=== PATIENT | female | born 1975 | race African-American/Black ===

== ENCOUNTER 2016-07-05 12:47 | Inpatient (IN) | payer MEDICAID ==
[~2016-07-05] VITALS: Ht 170.2 cm; Wt 61.8 kg
[2016-07-05 14:11] LABS: Basophils # (auto) 0 uL; Basophils % (auto) 0.8 % (0.0-2.0); Eosinophils # (auto) 0.2 uL; Eosinophils % (auto) 3.2 % (0.0-7.0); Hematocrit 39.7 % (36.0-46.0); Hemoglobin 13.3 g/dL (12.2-16.2); Lymphocytes # (auto) 2.4 uL; Lymphocytes % (auto) 48.7 % (10.0-50.0); Mean Corpuscular Hemoglobin 33.3 pg (28.0-32.0); Mean Corpuscular Hgb Conc. 33.5 g/dL (32.0-36.0); Mean Corpuscular Volume 99.4 fL (80.0-100.0); Mean Platelet Volume 7.4 fL (7.4-10.4); Monocytes # (auto) 0.3 uL; Monocytes % (auto) 6.4 % (0.0-12.0); Neutrophils % (auto) 40.9 % (37.0-80.0); Platelet Count (auto) 330 10^3/uL (140-450); Red Cell Distribution Width 15.3 % (11.6-16.0); White Blood Cell 4.8 10^3/uL (4.4-10.8)
[2016-07-05 14:46] LABS: Albumin 3.5 g/dL (3.4-5.0); Bilirubin, Total 0.4 mg/dL (0.2-1.0); Calcium 8.7 mg/dL (8.5-10.1); Magnesium 1.8 mg/dL (1.6-2.6); Potassium 3.4 mmol/L (3.5-5.1); Total Protein 6.9 g/dL (6.4-8.2)
[2016-07-05] MEDS ORDERED: SODIUM CHLORIDE 0.9% 1,000 ML IVB ONE (16:23)
[2016-07-05] MEDS ORDERED: ONDANSETRON HCL 4 MG/2 ML VIAL IV ONE (16:30)
[2016-07-05] MEDS ORDERED: KETOROLAC TROMETH 30 MG/ML 1ML VIAL IV ONE (16:30)
[2016-07-05 16:36] LABS: Urine Bilirubin Negative (Negative); Urine Blood Negative /uL (Negative); Urine Color Yellow (Yellow); Urine Glucose Normal (Normal); Urine Ketone Negative (Negative); Urine Mucus FEW (None Seen); Urine Nitrite Negative (Negative); Urine RBC <1 /hpf (0 - 4); Urine Squamous Epithelial Cell FEW /hpf (<5); Urine pH 5.5 (5.0-8.0)
[2016-07-05 16:55] LABS: Amylase 60 U/L (25-115)
[2016-07-05 17:19] LABS: Partial Thromboplastin Time 25.2 sec (22.64-33.71); Prothrombin Time 10.3 sec (9.37-12.3)
[2016-07-05] MEDS: SODIUM CHLORIDE 0.9% 1,000 ML IV SCH (22:13)
[2016-07-05] MEDS: MORPHINE SULF INJ 2 MG/ML SYRINGE 1ML IV PRN (22:16)
[2016-07-05] MEDS: FAMOTIDINE (10MG/ML) 2ML VL IV SCH (22:21)
[2016-07-05 23:30] VITALS: BP 117/83
[2016-07-06] MEDS: MORPHINE SULF INJ 2 MG/ML SYRINGE 1ML IV PRN ×4 (02:59→14:58)
[2016-07-06] MEDS ORDERED: INFLUENZA QUAD 2016-2017 0.5 ML SYRG IM ONE (04:15)
[2016-07-06 05:49] VITALS: BP 101/63
[2016-07-06 05:51] VITALS: BP 125/78
[2016-07-06 06:19] LABS: Hematocrit 34.4 % (36.0-46.0); Hemoglobin 11.8 g/dL (12.2-16.2); Mean Corpuscular Hemoglobin 34.6 pg (28.0-32.0); Mean Corpuscular Hgb Conc. 34.1 g/dL (32.0-36.0); Mean Corpuscular Volume 101.4 fL (80.0-100.0); Mean Platelet Volume 7.5 fL (7.4-10.4); Platelet Count (auto) 271 10^3/uL (140-450); Red Cell Distribution Width 14.1 % (11.6-16.0); SUSPECT VIEW TRANSMISSION; White Blood Cell 4.7 10^3/uL (4.4-10.8)
[2016-07-06 06:45] LABS: Metamyelocytes % 0; Myelocytes % 0; Promyelocytes % 0; Reactive Lymphocytes 0
[2016-07-06] MEDS: SODIUM CHLORIDE 0.9% 1,000 ML IV SCH ×2 (06:49→13:32)
[2016-07-06 07:11] LABS: Albumin 2.9 g/dL (3.4-5.0); Bilirubin, Total 0.3 mg/dL (0.2-1.0); Calcium 8.2 mg/dL (8.5-10.1); Potassium 3.8 mmol/L (3.5-5.1); Total Protein 5.7 g/dL (6.4-8.2)
[2016-07-06] MEDS: ONDANSETRON HCL 4 MG/2 ML VIAL IV PRN ×3 (07:27→14:58)
[2016-07-06 07:48] LABS: Platelet Estimate Adequate
[2016-07-06 07:49] LABS: Anisocytosis Slight
[2016-07-06 09:00] VITALS: BP 124/72
[2016-07-06] MEDS: FAMOTIDINE (10MG/ML) 2ML VL IV SCH (10:35)
[2016-07-06 13:00] VITALS: BP 140/83
[2016-07-06] MEDS ORDERED: PANTOPRAZOLE 40 MG TAB PO ONE (14:45)
[2016-07-06] MEDS ORDERED: PANTOPRAZOLE 40 MG TAB PO SCH (22:00)
== END 2016-07-06 15:18 | disposition home or self-care (01) | DRG 241 ==
LOC: ER 12:50 → OVERFLOW 12:51 → WEST WING 23:25
PROVIDERS: ADMIT Family Medicine; ATTEND Family Medicine
DX: K29.70 Gastritis, unspecified, without bleeding (principal); K85.90 Acute pancreatitis without necrosis or infection, unspecified; E86.0 Dehydration; K21.9 Gastro-esophageal reflux disease without esophagitis; K86.2 Cyst of pancreas; F10.10 Alcohol abuse, uncomplicated; F17.210 Nicotine dependence, cigarettes, uncomplicated; Z90.49 Acquired absence of other specified parts of digestive tract; Z23 Encounter for immunization
CPT/HCPCS: 36415; 71010; 74176; 80053; 81001; 81025; 82150; 83690; 83735; 85007; 85025; 85027; 85049; 85610; 85730; 94761; 96361; 96374; 96375; J1885; J2405; J3490

== ENCOUNTER 2016-08-12 02:11 | Emergency (ER) | payer MEDICAID ==
[~2016-08-12] VITALS: Ht 170.2 cm; Wt 59.9 kg
[2016-08-12 02:15] VITALS: BP 133/71
[2016-08-12 03:00] LABS: Urine Bilirubin Negative (Negative); Urine Blood Negative /uL (Negative); Urine Color Yellow (Yellow); Urine Glucose Normal (Normal); Urine Ketone TRACE (Negative); Urine Nitrite Negative (Negative); Urine RBC 5 /hpf (0 - 4); Urine Squamous Epithelial Cell FEW /hpf (<5); Urine Urobilinogen Normal (Negative)
== END 2016-08-12 08:00 | disposition left against medical advice (07) ==
LOC: ER 02:12
DX: N89.8 Other specified noninflammatory disorders of vagina (principal); Z53.21 Procedure and treatment not carried out due to patient leaving prior to being seen by health care provider
CPT/HCPCS: 81001; 81025

== ENCOUNTER 2016-10-21 07:29 | Observation (INO) | payer MEDICAID ==
[~2016-10-21] VITALS: Ht 170.2 cm; Wt 59.0 kg
[2016-10-21] MEDS ORDERED: SODIUM CHLORIDE 0.9% 1,000 ML IVB ONE ×2 (07:43→08:16)
[2016-10-21] MEDS ORDERED: METOCLOPRAMIDE HCL 5MG/ml INJ 2ml VIAL IV ONE (08:30)
[2016-10-21] MEDS ORDERED: NALBUPHINE HCL 10 MG/1ml INJECTION IV ONE (08:30)
[2016-10-21] MEDS ORDERED: FAMOTIDINE 20 MG TAB PO ONE (08:30)
[2016-10-21] MEDS ORDERED: DONNATAL 5ml ORAL Elix (BELLADONNA ALK-PHENOBARB) PO ONE (08:30)
[2016-10-21] MEDS ORDERED: ALUM & MAG HYDROX-SIMETH LIQ(MAALOX) 30 ML PO ONE (08:30)
[2016-10-21 08:52] LABS: INR 0.97 (0.9-1.15); Partial Thromboplastin Time 23.6 sec (22.64-33.71); Prothrombin Time 10.5 sec (9.37-12.3)
[2016-10-21 08:55] LABS: DEFINITIVE VIEW TRANSMISSION; Hematocrit 47.7 % (36.0-46.0); Hemoglobin 16.1 g/dL (12.2-16.2); Mean Corpuscular Hemoglobin 37.5 pg (28.0-32.0); Mean Corpuscular Hgb Conc. 33.8 g/dL (32.0-36.0); Mean Corpuscular Volume 110.7 fL (80.0-100.0); Mean Platelet Volume 7.6 fL (7.4-10.4); Platelet Count (auto) 403 10^3/uL (140-450); Red Cell Distribution Width 15.7 % (11.6-16.0); SUSPECT VIEW TRANSMISSION; White Blood Cell 8.4 10^3/uL (4.4-10.8)
[2016-10-21 08:58] LABS: Albumin 4.7 g/dL (3.4-5.0); BUN/Creatinine Ratio 7.9; Calcium 9.1 mg/dL (8.5-10.1); Potassium 3.8 mmol/L (3.5-5.1)
[2016-10-21 08:59] LABS: Metamyelocytes % 0; Myelocytes % 0; Promyelocytes % 0; Reactive Lymphocytes 0
[2016-10-21 09:00] LABS: Bilirubin, Total 2.4 mg/dL (0.2-1.0); Total Protein 8.3 g/dL (6.4-8.2)
[2016-10-21 09:03] LABS: Urine Bilirubin Negative (Negative); Urine Color Yellow (Yellow); Urine Glucose Normal (Normal); Urine Nitrite Negative (Negative); Urine RBC 1 /hpf (0 - 4); Urine Squamous Epithelial Cell FEW /hpf (<5); Urine Urobilinogen Normal (Negative)
[2016-10-21 09:06] LABS: Urine Blood 1+ /uL (Negative); Urine Ketone 1+ (Negative)
[2016-10-21 11:20] LABS: Macrocytosis Moderate; Platelet Estimate Adequate; Stomatocytes Moderate
[2016-10-21 11:58] VITALS: BP 131/87
== END 2016-10-21 12:33 | disposition home or self-care (01) | DRG 241 ==
LOC: ER 07:38 → OVERFLOW 08:19 → ER 12:33
PROVIDERS: ADMIT Emergency Medicine; ATTEND Emergency Medicine
DX: K29.00 Acute gastritis without bleeding (principal); F10.10 Alcohol abuse, uncomplicated; F17.210 Nicotine dependence, cigarettes, uncomplicated
CPT/HCPCS: 36415; 80053; 80307; 81001; 81025; 83690; 83735; 84443; 85007; 85027; 85610; 85730; 93005; 96361; 96374; 96375; 99285; G0378; J2300; J2765; J7030